=== PATIENT | male | born 1930 | race African-American/Black ===

== ENCOUNTER 2018-05-04 13:46 | Emergency (ER) | payer OTHER ==
[2018-05-04 16:07] LABS: Potassium 3.8 mmol/L (3.5-5.1)
[2018-05-04 16:08] LABS: Absolute Lymphocytes (CBC) 1.5 K/uL (0.7-4.9); Absolute Monocytes 0.5 K/uL (0.1-1.3); Absolute Neutrophil 2.8 K/uL (1.8-8.0); Basophils % 1.1 % (0-1.3); Eosinophils % 1.7 % (0-4.4); Hematocrit 41.3 % (39.6-49.0); Lymphocytes % 30.8 % (15.3-44.8); MPV 8.7 fL (7.6-11.3); Monocytes % 9.9 % (3.3-12.3); RBC Red Blood Cell Count 4.63 M/uL (4.33-5.43)
--- NOTE | 2018-05-04 16:25 | RAD REPORT ---
EXAM DESCRIPTION: RAD - Knee Right 3 View - 05/04/2018 3:57 pm CLINICAL HISTORY: Right knee pain FINDINGS: No fracture or dislocation is seen. Marked osteoarthritis involves the medial compartment consisting joint space narrowing and osteophyte s. Patella femoral compartment is also involved. Moderate osteoarthritis involves the lateral compart ment
--- NOTE | 2018-05-04 16:53 | EDPHYS ---
Physician Documentation [facility] Name: Darion Wu Age: 88 yrs Sex: Male : 1930 Arrival Date: 05/04/2018 Time: 13:50 Bed 27 Private MD: Dayo Weathers V ED Physician Luke Veras HPI: 05/04 16:00 This 88 yrs old Black Male presents to ER via Ambulatory with complaints of Knee Pain. rn 16:00 The patient presents with pain. The complaints affect the right knee. rn 16:01 Onset: The symptoms/episode began/occurred today. Modifying factors: The symptoms are rn alleviated by remaining still, the symptoms are aggravated by weight bearing, bending knee. Treatment prior to arrival includes: no previous treatment. Severity of symptoms: At their worst the symptoms were moderate, in the emergency department the symptoms have improved. The patient has not experienced similar symptoms in the past. Reports doing physical therapy as he normally does, does leg kicks, no trauma otherwise, began to feel pain in right knee, no fever, no fall, reports not a persistent pain, hurts during certain movements, more on medial side of knee, seems a little swollen, doesn't really hurt to walk, pain is sharp and shooting, radiates up to right thigh, is intermittent. . Historical: - Allergies: 14:05 No Known Allergies; sg - Home Meds: 14:05 lisinopril 20 mg Oral tab 1 tab once daily for Hypertension [Active]; sg - PMHx: 14:05 Hyperlipidemia; Hypertension; sg - PSHx: 14:05 back; sg - Immunization history:: Adult Immunizations up to date. - Social history:: Smoking status: Patient/guardian denies using tobacco. - Ebola Screening: : Patient negative for fever greater than or equal to 101.5 degrees Fahrenheit, and additional compatible Ebola Virus Disease symptoms Patient denies exposure to infectious person Patient denies travel to an Ebola-affected area in the 21 days before illness onset No symptoms or risks identified at this time. - Family history:: not pertinent. - Hospitalizations: : No recent hospitalization is reported. ROS: 16:01 Constitutional: Negative for fever, chills, and weight loss, MS/Extremity: + right knee rn pain Skin: Negative for injury, rash, and discoloration, Neuro: Negative for headache, weakness, numbness, tingling, and seizure. Exam: 16:01 Constitutional: This is a well developed, well nourished patient who is awake, alert, rn and in no acute distress. Skin: Warm, dry with normal turgor. Normal color with no rashes, no lesions, and no evidence of cellulitis. MS/ Extremity: Pulses equal, no cyanosis. + mild suprapatellar effusion, no erythema or warmth, full active and passive ROM with intermittent stabbing pains regardless of position or motion. Vital Signs: 14:04 BP 147 / 82; Pulse 66; Resp 17; Temp 97.6; Pulse Ox 100% on R/A; Weight 73.48 kg; Pain sg 6/10; 15:00 BP 138 / 74 LA Supine (auto/reg); Pulse 88; Pulse Ox 100% on R/A; Pain 9/10; jp3 17:06 BP 132 / 74; Pulse 74; Resp 18; Pulse Ox 98% on R/A; la1 MDM: 14:56 Patient medically screened. rn 16:48 Differential diagnosis: tendonitis, arthritis. Data reviewed: vital signs, nurses notes.rn 16:52 Counseling: I had a detailed discussion with the patient and/or guardian regarding: the rn historical points, exam findings, and any diagnostic results supporting the discharge/admit diagnosis, lab results, radiology results, the need for outpatient follow up, to return to the emergency department if symptoms worsen or persist or if there are any questions or concerns that arise at home. Special discussion: I discussed with the patient/guardian in detail that at this point there is no indication for admission to the hospital. It is understood, however, that if the symptoms persist or worsen the patient needs to return immediately for re-evaluation. 17:01 ED course: Spoke at length with patient and family, after negative WBC/procal and rn afebrile, will not perform joint aspiration as most likely wear and tear/osteoarthritis of knee/overuse, especially that patient is ambulatory and pain is only intermittent. . 05/04 15:16 Order name: CBC with Diff; Complete Time: 16:32 rn 05/04 15:16 Order name: Basic Metabolic Panel; Complete Time: 16:32 rn 05/04 14:43 Order name: XRAY Knee RIGHT 3 view; Complete Time: 16:32 sg 05/04 15:16 Order name: Procalcitonin; Complete Time: 16:47 rn 05/04 15:16 Order name: Blood Culture Adult (2) rn 05/04 15:16 Order name: IV Start; Complete Time: 15:31 rn Administered Medications: 17:06 Drug: [place] 5 mg-325 mg 1 tabs Route: PO; la1 17:06 Follow up: Response: Medication administered at discharge. la1 Disposition: 05/04/18 16:53 Discharged to Home. Impression: Pain in left knee, Osteoarthritis of knee. - Condition is Stable. - Discharge Instructions: Musculoskeletal Pain, Knee Pain, Arthritis, Uzer-ko-Feva. - Medication Reconciliation Form, Thank You Letter, Antibiotic Education, Prescription Opioid Use form. - Follow up: Private Physician; When: As needed; Reason: Recheck today's complaints, Re-evaluation by your physician. - Problem is new. - Symptoms have improved. Signatures: Dispatcher [employer] EDMS Alex Ordonez RN RN Luke Veras MD MD rn Attema, Lee, RN RN la1 Corrections: (The following items were deleted from the chart) 17:07 16:53 05/04/2018 16:53 Discharged to Home. Impression: Pain in left knee; la1 Osteoarthritis of knee. Condition is Stable. Forms are Medication Reconciliation Form, Thank You Letter, Antibiotic Education, Prescription Opioid Use. Follow up: Private Physician; When: As needed; Reason: Recheck today's complaints, Re-evaluation by your physician. Problem is new. Symptoms have improved. rn
--- NOTE | 2018-05-04 16:53 | ER ---
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 Transition of care: patient was not received from another setting of care. Onset of symptoms was May 04, 2018. Risk Assessment: Do you want to hurt yourself or someone else? Patient reports no desire to harm self or others. Initial Sepsis Screen: Does the patient meet any 2 criteria? No. Patient's initial sepsis screen is negative. Does the patient have a suspected source of infection? No. Patient's initial sepsis screen is negative. Care prior to arrival: None. 14:03 Method Of Arrival: Ambulatory sg 14:03 Acuity: SALO 4 sg Triage Assessment: 14:05 General: Appears in no apparent distress. comfortable, slender, well groomed, well sg developed, well nourished, Behavior is calm, cooperative, appropriate for age. Pain: Complains of pain in right quadriceps and right knee Quality of pain is described as aching, sharp. Musculoskeletal: Circulation, motion, and sensation intact. Range of motion: intact in all extremities, Swelling absent. Historical: - Allergies: 14:05 No Known Allergies; sg - Home Meds: 14:05 lisinopril 20 mg Oral tab 1 tab once daily for Hypertension [Active]; sg - PMHx: 14:05 Hyperlipidemia; Hypertension; sg - PSHx: 14:05 back; sg - Immunization history:: Adult Immunizations up to date. - Social history:: Smoking status: Patient/guardian denies using tobacco. - Ebola Screening: : Patient negative for fever greater than or equal to 101.5 degrees Fahrenheit, and additional compatible Ebola Virus Disease symptoms Patient denies exposure to infectious person Patient denies travel to an Ebola-affected area in the 21 days before illness onset No symptoms or risks identified at this time. - Family history:: not pertinent. - Hospitalizations: : No recent hospitalization is reported. Screenin:30 Abuse screen: Denies threats or abuse. Nutritional screening: No deficits noted. la1 Tuberculosis screening: No symptoms or risk factors identified. Fall Risk None identified. Assessment: 15:29 General: Appears in no apparent distress. Behavior is calm, cooperative. Pain: la1 Complains of pain in right knee. Neuro: Level of Consciousness is awake, alert, obeys commands, Oriented to person, place, time, situation. Cardiovascular: Heart tones S1 S2 present Capillary refill < 3 seconds Patient's skin is warm and dry. Respiratory: Airway is patent Respiratory effort is even, unlabored, Respiratory pattern is regular, symmetrical, Breath sounds are clear. GI: No signs and/or symptoms were reported involving the gastrointestinal system. : No signs and/or symptoms were reported regarding the genitourinary system. Musculoskeletal: Circulation, motion, and sensation intact. Capillary refill < 3 seconds, is brisk, in bilateral fingers. Range of motion: intact in all extremities. 16:34 Reassessment: Patient appears in no apparent distress at this time. No changes from la1 previously documented assessment. Patient and/or family updated on plan of care and expected duration. Pain level reassessed. Patient is alert, oriented x 3, equal unlabored respirations, skin warm/dry/pink. Vital Signs: 14:04 BP 147 / 82; Pulse 66; Resp 17; Temp 97.6; Pulse Ox 100% on R/A; Weight 73.48 kg; Pain sg 6/10; 15:00 BP 138 / 74 LA Supine (auto/reg); Pulse 88; Pulse Ox 100% on R/A; Pain 9/10; jp3 17:06 BP 132 / 74; Pulse 74; Resp 18; Pulse Ox 98% on R/A; la1 ED Course: 13:50 Patient arrived in ED. as 13:50 Dayo Weathers MD is Private Physician. as 14:03 Arm band placed on. sg 14:04 Triage completed. sg 14:56 Luke Veras MD is Attending Physician. rn 15:28 Pedrito Gonsalez RN is Primary Nurse. la1 15:29 No provider procedures requiring assistance completed. Inserted saline lock: 20 gauge la1 in left antecubital area, using aseptic technique. Blood collected. 15:30 Bed in low position. Call light in reach. la1 15:56 XRAY Knee RIGHT 3 view In Process Unspecified. EDMS 17:07 IV discontinued, intact, bleeding controlled, No redness/swelling at site. Pressure la1 dressing applied. Administered Medications: 17:06 Drug: [place] 5 mg-325 mg 1 tabs Route: PO; la1 17:06 Follow up: Response: Medication administered at discharge. la1 Outcome: 16:53 Discharge ordered by . rn 17:07 Discharged to home ambulatory. la1 17:07 Condition: stable 17:07 Discharge instructions given to patient, Instructed on discharge instructions, follow up and referral plans. medication usage, Demonstrated understanding of instructions, follow-up care, medications. 17:07 Patient left the ED. la1 Signatures: Dispatcher [employer] EDMS Alex Ordonez, RN RN Reena Beach Roman, MD MD rn Attema, Lee, RN RN laBraydon Corona jp3
[2018-05-04] MEDS ORDERED: HYDROCODONE/APAP 5/325 MG TAB ONE (17:12)
== END 2018-05-04 17:07 | disposition home or self-care (01) ==
LOC: ER 13:46
DX: M17.11 Unilateral primary osteoarthritis, right knee (principal); I10 Essential (primary) hypertension; E78.5 Hyperlipidemia, unspecified
CPT/HCPCS: 36415; 80048; 84145; 85025; 87040; 99284

== ENCOUNTER 2019-01-24 20:46 | Emergency (ER) | payer OTHER ==
--- OUTSIDE RECORDS SUMMARY | 2019-01-24 20:48 | XMS REPORT ---
:1930 [facility] [place] [address] [place] [id number] Care Team Providers Name Role Phone Unavailable Unavailable Unavailable Problems This patient has no known problems. Allergies, Adverse Reactions, Alerts This patient has no known allergies or adverse reactions. Medications This patient has no known medications.
--- NOTE | 2019-01-24 22:34 | ER ---
Nurse's Notes [facility] Name: Darion Wu Age: 88 yrs Sex: Male : 1930 Arrival Date: 01/24/2019 Time: 20:49 Bed 19 Private MD: Diagnosis: Dizziness and giddiness Presentation: 01/24 21:19 Presenting complaint: Patient states: Pain and pounding on my forehead and on my ca1 sinuses. It started couple of weeks ago, comes and goes but has gotten worse today. Denies nasal discharge and congestion. Reports dizziness for several days but today has been going on the whole day. Today, both ears started hurting too. Took allergy medication today after 4pm. Transition of care: patient was not received from another setting of care. Onset of symptoms was January 24, 2019. Risk Assessment: Do you want to hurt yourself or someone else? Patient reports no desire to harm self or others. Initial Sepsis Screen: Does the patient meet any 2 criteria? No. Patient's initial sepsis screen is negative. Does the patient have a suspected source of infection? No. Patient's initial sepsis screen is negative. Care prior to arrival: None. 21:19 Method Of Arrival: Ambulatory ca1 21:19 Acuity: SALO 3 ca1 Triage Assessment: 22:05 Headache History: The patient has had previous headaches and this one is different than cc3 previous episodes, and this one is more severe than previous episodes. General: Appears in no apparent distress. comfortable, Behavior is calm, cooperative, appropriate for age. Pain: Complains of pain in sinus headache Pain currently is 5 out of 10 on a pain scale. Pain began 1 day ago. Also complains of no other associated symptoms. Neuro: Level of Consciousness is awake, alert, obeys commands, Oriented to person, place, time, situation, Appropriate for age. Historical: - Allergies: 21:25 No Known Allergies; ca1 - Home Meds: 21:25 lisinopril 20 mg Oral tab 1 tab once daily for Hypertension [Active]; ca1 - PMHx: 21:25 Hyperlipidemia; Hypertension; ca1 - PSHx: 21:25 back; ca1 - Immunization history:: Adult Immunizations up to date, Flu vaccine is up to date. - Social history:: Smoking status: Patient/guardian denies using tobacco. - Ebola Screening: : Patient negative for fever greater than or equal to 101.5 degrees Fahrenheit, and additional compatible Ebola Virus Disease symptoms Patient denies exposure to infectious person Patient denies travel to an Ebola-affected area in the 21 days before illness onset No symptoms or risks identified at this time. Screenin:05 Abuse screen: Denies threats or abuse. Denies injuries from another. Nutritional cc3 screening: No deficits noted. Tuberculosis screening: No symptoms or risk factors identified. Fall Risk Ambulatory Aid- None/Bed Rest/Nurse Assist (0 pts). Gait- Normal/Bed Rest/Wheelchair (0 pts) Mental Status- Oriented to own ability (0 pts). Assessment: 22:05 General: Appears in no apparent distress. comfortable, Behavior is calm, cooperative, cc3 appropriate for age. Pain: Complains of pain in sinus headache. Neuro: Level of Consciousness is awake, alert, obeys commands, Oriented to person, place, time, situation, Appropriate for age. Cardiovascular: Denies chest pain, Heart tones S1 S2 present Capillary refill < 3 seconds in bilateral fingers Patient's skin is warm and dry. Respiratory: Airway is patent Respiratory effort is even, unlabored, Respiratory pattern is regular, symmetrical, Breath sounds are clear bilaterally. GI: Abdomen is flat, Bowel sounds present X 4 quads. : No signs and/or symptoms were reported regarding the genitourinary system. EENT: No signs and/or symptoms were reported regarding the EENT system. Derm: Skin is intact, is healthy with good turgor, Skin is normal, black. Musculoskeletal: Circulation, motion, and sensation intact. Range of motion: intact in all extremities. 23:00 Reassessment: Patient appears in no apparent distress at this time. Patient and/or cc3 family updated on plan of care and expected duration. Pain level reassessed. Patient is alert, oriented x 3, equal unlabored respirations, skin warm/dry/pink. 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 No IV cannula in situ. Patient left ER vitally stable and ambulatory with his family. No valuables left in the patient's room. Patient states feeling better. Patient states symptoms have improved. Vital Signs: 21:25 BP 139 / 67; Pulse 61; Resp 16 S; Temp 98(O); Pulse Ox 97% on R/A; Weight 72.12 kg (R); ca1 Height 5 ft. 10 in. (177.80 cm) (R); Pain 4/10; 22:30 BP 131 / 63; Pulse 63; Resp 17 S; Pulse Ox 98% on R/A; Pain 3/10; cc3 21:25 Body Mass Index 22.81 (72.12 kg, 177.80 cm) ca1 ED Course: 20:49 Patient arrived in ED. cl3 21:23 Triage completed. ca1 21:25 Arm band placed on right wrist. ca1 21:34 Pedrito Gonsalez FNP-C is PHCP. la1 21:34 Fabrice Jeffrey MD is Attending Physician. la1 22:05 Glendy Root is Primary Nurse. cc3 22:05 Patient has correct armband on for positive identification. Bed in low position. Call cc3 light in reach. Side rails up X2. Pulse ox on. NIBP on. 23:00 No provider procedures requiring assistance completed. Patient did not have IV access cc3 during this emergency room visit. Administered Medications: No medications were administered Outcome: 22:33 Discharge ordered by . la1 23:00 Discharged to home ambulatory, with family. cc3 23:00 Condition: stable 23:00 Discharge instructions given to patient, Instructed on discharge instructions, follow up and referral plans. medication usage, Demonstrated understanding of instructions, follow-up care, medications, Prescriptions given X 1. 23:21 Patient left the ED. cc3 Signatures: Pedrito Gonsalez FNP-C PROCEDURES RN-Cla1 Glendy Root cc3 Jennifer Busch RN RN ca1 Jeff Hernandez cl3 Corrections: (The following items were deleted from the chart) 21:27 21:19 Presenting complaint: Patient states: Pain and pounding on my forehead and on my ca1 sinuses. It started couple of weeks ago, comes and goes but has gotten worse today. Denies nasal discharge and congestion. Reports dizziness for several days but today has been going on the whole day. Today, both ears started hurting too. Took allergy medication today after 4pm ca1
--- NOTE | 2019-01-24 22:34 | EDPHYS ---
Physician Documentation [facility] Name: Darion Wu Age: 88 yrs Sex: Male : 1930 Arrival Date: 01/24/2019 Time: 20:49 Bed 19 Private MD: ED Physician Fabrice Jeffrey HPI: 01/24 22:24 This 88 yrs old Black Male presents to ER via Ambulatory with complaints of Sinus Pain. la1 22:24 The patient or guardian reports Facial pain. Onset: The symptoms/episode began/occurred la1 2 week(s) ago. Severity of symptoms: At their worst the symptoms were mild, in the emergency department the symptoms are unchanged. Modifying factors: The symptoms are alleviated by nothing, the symptoms are aggravated by position change. Associated signs and symptoms: Pertinent negatives: chest pain, fever, rhinorrhea, sore throat, vomiting. The patient has not experienced similar symptoms in the past. Pt reports he has had intermittent facial pain and dizziness that occurs with change in position for the last couple of weeks. Currently denies pain or dizziness. Historical: - Allergies: 21:25 No Known Allergies; ca1 - Home Meds: 21:25 lisinopril 20 mg Oral tab 1 tab once daily for Hypertension [Active]; ca1 - PMHx: 21:25 Hyperlipidemia; Hypertension; ca1 - PSHx: 21:25 back; ca1 - Immunization history:: Adult Immunizations up to date, Flu vaccine is up to date. - Social history:: Smoking status: Patient/guardian denies using tobacco. - Ebola Screening: : Patient negative for fever greater than or equal to 101.5 degrees Fahrenheit, and additional compatible Ebola Virus Disease symptoms Patient denies exposure to infectious person Patient denies travel to an Ebola-affected area in the 21 days before illness onset No symptoms or risks identified at this time. ROS: 22:25 Constitutional: Negative for fever, chills, and weight loss, Eyes: Negative for injury, la1 pain, redness, and discharge, ENT: Negative for injury, pain, and discharge, Neck: Negative for injury, pain, and swelling, Cardiovascular: Negative for chest pain, palpitations, and edema, Respiratory: Negative for shortness of breath, cough, wheezing, and pleuritic chest pain, Abdomen/GI: Negative for abdominal pain, nausea, vomiting, diarrhea, and constipation, Back: Negative for injury and pain, MS/Extremity: Negative for injury and deformity, Neuro: Negative for headache, weakness, numbness, tingling, and seizure. Exam: 22:26 Constitutional: This is a well developed, well nourished patient who is awake, alert, la1 and in no acute distress. Head/Face: Normocephalic, atraumatic. Eyes: Pupils equal round and reactive to light, extra-ocular motions intact. Periorbital areas with no swelling, redness, or edema. ENT: Nares patent. No nasal discharge, no septal abnormalities noted. Tympanic membranes are normal and external auditory canals are clear. Oropharynx with no redness, swelling, or masses, exudates, or evidence of obstruction, uvula midline. Mucous membranes moist. Neck: Trachea midline Supple, full range of motion without nuchal rigidity, or vertebral point tenderness. No Meningismus. Chest/axilla: Normal chest wall appearance and motion. Nontender with no deformity. No lesions are appreciated. Cardiovascular: Regular rate and rhythm with a normal S1 and S2. No gallops, murmurs, or rubs. Normal PMI, no JVD. No pulse deficits. Respiratory: Lungs have equal breath sounds bilaterally, clear to auscultation No rales, rhonchi or wheezes noted. No increased work of breathing, no retractions or nasal flaring. Abdomen/GI: Soft, non-tender, with normal bowel sounds. No distension No guarding or rebound. No evidence of tenderness throughout. Back: No spinal tenderness. No costovertebral tenderness. Full range of motion. 22:26 Neuro: Orientation: is normal, Mentation: is normal, Memory: is normal, Cranial nerves: CN II- XII are normal as tested, visual germain are intact. extraocular movements are intact, Cerebellar function: is grossly normal, Romberg testing is negative, normal finger to nose testing, Motor: is normal, Sensation: is normal, Gait: is steady. Vital Signs: 21:25 BP 139 / 67; Pulse 61; Resp 16 S; Temp 98(O); Pulse Ox 97% on R/A; Weight 72.12 kg (R); ca1 Height 5 ft. 10 in. (177.80 cm) (R); Pain 4/10; 22:30 BP 131 / 63; Pulse 63; Resp 17 S; Pulse Ox 98% on R/A; Pain 3/10; cc3 21:25 Body Mass Index 22.81 (72.12 kg, 177.80 cm) ca1 MDM: 21:34 Patient medically screened. la1 22:27 Data reviewed: vital signs, nurses notes, and as a result, I will discharge patient. la1 Data interpreted: Pulse oximetry: on room air is 97 %. Interpretation: normal. Counseling: I had a detailed discussion with the patient and/or guardian regarding: the historical points, exam findings, and any diagnostic results supporting the discharge/admit diagnosis, the need for outpatient follow up, a family practitioner. ED course: Pt without sinus tenderness or fever, no otitis media, not reporting any dizziness at rest but can reproduce mild dizziness with change of position of head. Pt states dizziness is only associated movement. Neuro exam is normal. . ED course: Pt denies chest pain, SOB, persistent dizziness. Administered Medications: No medications were administered Disposition: 01/24/19 22:33 Discharged to Home. Impression: Dizziness and giddiness. - Condition is Stable. - Discharge Instructions: Allergies, Adult, Benign Positional Vertigo, Dizziness. - Prescriptions for Meclizine 25 mg Oral Tablet - take 1 tablet by ORAL route every 8 hours As needed; 30 tablet. - Medication Reconciliation Form, Thank You Letter form. - Follow up: Private Physician; When: 2 - 3 days; Reason: Recheck today's complaints, Re-evaluation by your physician. - Problem is new. - Symptoms have improved. Addendum: 01/26/2019 09:26 Co-signature as Attending Physician, Fabrice Jeffrey MD I agree with the assessment and c gardiner plan of care. Signatures: Fabrice Jeffrey MD MD cha Attema, Lee, PUBLISHING AGENT-C PUBLISHING AGENT-Cla1 Glendy Root cc3 Jennifer Busch, RN RN ca1 Corrections: (The following items were deleted from the chart) 01/24 23:21 22:33 01/24/2019 22:33 Discharged to Home. Impression: Dizziness and giddiness. cc3 Condition is Stable. Forms are Medication Reconciliation Form, Thank You Letter, Antibiotic Education, Prescription Opioid Use. Follow up: Private Physician; When: 2 - 3 days; Reason: Recheck today's complaints, Re-evaluation by your physician. Problem is new. Symptoms have improved. la1
[2019-01-25 00:58] VITALS: BP 139/67; TEMP 98; O2SAT 97
== END 2019-01-24 23:21 | disposition home or self-care (01) ==
LOC: ER 20:46
DX: R42 Dizziness and giddiness (principal); I10 Essential (primary) hypertension
CPT/HCPCS: 99283